=== PATIENT | female | born 1955 | race African-American/Black ===

== ENCOUNTER 2024-12-04 14:00 | Emergency (ER) | payer MEDICARE ==
[~2024-12-04] VITALS: Ht 165.1 cm; Wt 120.0 kg
[2024-12-04 14:02] VITALS: O2SAT 100
[2024-12-04] MEDS: HYDROCODONE/ACETAMINOPHEN 5/325MG TABLET PO ONE (16:58)
[2024-12-04] MEDS ORDERED: ACET-2708 MT (17:03)
[2024-12-04] MEDS ORDERED: CYCL5TAB3 MT (17:03)
[2024-12-04 18:23] LABS: BASOPHILS % 0.9 % (0.0-2.0); EOSINOPHILS % 2.3 % (0.0-5.0); HEMATOCRIT. 30.4 % (36.0-48.0); HEMOGLOBIN. 9.8 g/dL (12.0-16.0); LYMPHOCYTES % 39.7 % (20.0-50.0); MEAN CORPUSCULAR HEMOGLOBIN 27.8 pg (28.0-32.0); MEAN CORPUSCULAR HGB CONC 32.1 g/dL (31.0-37.0); MEAN CORPUSCULAR VOLUME 86.6 fL (81.0-99.0); MEAN PLATELET VOLUME 8.6 fl (7.4-10.4); MONOCYTES % 12.2 % (2.0-8.0); NEUTROPHILS % 44.9 % (40.0-76.0); PLATELET 158 x1000/uL (130-400); RED BLOOD CELL COUNT 3.51 mill/uL (4.2-5.4); RED CELL DISTRIBUTION WIDTH 13.5 % (11.6-14.6); WHITE BLOOD COUNT 4.8 x1000/uL (4.5-11.0)
[2024-12-04 18:29] LABS: CHLORIDE 103 mEq/L (98-107); POTASSIUM 3.6 mEq/L (3.5-5.1); SODIUM 140 mEq/L (136-145)
[2024-12-04 18:30] LABS: CARBON DIOXIDE 30 mEq/L (21-32)
[2024-12-04 18:31] LABS: CALCIUM 8.8 mg/dL (8.7-10.4)
[2024-12-04 18:32] LABS: PROTHROMBIN TIME 10.7 sec (9.6-11.0)
[2024-12-04 18:35] LABS: CREATININE 0.8 mg/dL (0.6-1.0); GLUCOSE 107 mg/dL (70-105); UREA NITROGEN BLOOD 14 mg/dL (9-23)
[2024-12-04 18:36] LABS: TROPONIN I HIGH SENSITIVITY 4 ng/L (3.0-34)
[2024-12-04 19:25] LABS: ETHANOL BLOOD < 10 mg/dL (<10)
[2024-12-04 20:17] VITALS: BP_DIAS 82; TEMP 36.8; O2SAT 99
[2024-12-04] MEDS: KETOROLAC 15MG/ML VIAL IV NR (20:28)
[2024-12-04 20:40] VITALS: BP_SYST 89; PULSE 125; RESP 14
[2024-12-04] MEDS: KETOROLAC 30MG/ML VIAL IM ONE (20:40)
[2024-12-04] MEDS ORDERED: IOHEXOL-350 100 ML BOTTLE ONE (23:48)
== END 2024-12-04 20:49 | disposition home or self-care (01) ==
LOC: ER 14:00
DX: M25.532 Pain in left wrist (principal); M54.50 Low back pain, unspecified; R51.9 Headache, unspecified; Z79.899 Other long term (current) drug therapy
CPT/HCPCS: 80048; 80320; 85025; 85610; 84484; 36415; 73110; 70496; 70498; 70450; 72125; 71250; 74176; 96372; 99285; Q9967; J1885; G0480